=== PATIENT | female | born 1960 | race Caucasian/White ===

== ENCOUNTER 2021-05-19 22:43 | Emergency (ER) | payer OTHER ==
[~2021-05-19] VITALS: Ht 155 cm; Wt 63.5 kg
--- NOTE | 2021-05-19 23:01 | ED General ---
General Stated Complaint: COVID+,TROUBLE BREATHING Source of Information: Patient History of Present Illness Date Seen by Provider: May 19, 2021 Time Seen by Provider: 22:45 Initial Comments Patient is a 61-year-old female diagnosed with Covid 5 days ago who presents with shortness of breath and supine. Symptoms began this evening upon returning to bed improved upon coming to the emergency department.. Patient reports mild headache, dizziness, fatigue but denies body aches chest pain fever. She states overall she has improved since time of diagnosis with exception of this evening. She denies leg pain or swelling. No other acute symptoms or complaints. No medications or therapies taken prior to ED arrival. Of note, patient's blood pressure is 190s over 100s. She states she has never been treated or diagnosed with congestive heart failure and denies history of CAD, CHF or valvular heart disease.. Timing/Duration: 1-3 Hours Severity: Mild Modifying Factors: improves with Other Allergies and Home Medications Allergies Coded Allergies: Sulfa (Sulfonamide Antibiotics) (Verified Allergy, Intermediate, 05/19/21) rash Patient Home Medication List Home Medication List Reviewed: Yes Review of Systems Review of Systems Constitutional: see HPI EENTM: see HPI Respiratory: see HPI Cardiovascular: see HPI Gastrointestinal: see HPI Genitourinary: see HPI Musculoskeletal: see HPI Skin: see HPI Psychiatric/Neurological: See HPI Hematologic/Lymphatic: See HPI Immunological/Allergic: see HPI All Other Systems Reviewed Negative Unless Noted: Yes Physical Exam Vital Signs Vital Signs - First Documented 05/19/21 22:54 Temp 36.9 Pulse 64 Resp 20 B/P (MAP) 196/84 (121) Pulse Ox 99 O2 Delivery Room Air Capillary Refill : Height, Weight, BMI Height: '" Weight: lbs. oz. kg; BMI Method: General Appearance: WD/WN, Anxious Eyes: Bilateral Eye Normal Inspection, Bilateral Eye PERRL, Bilateral Eye EOMI HEENT: PERRL/EOMI, Pharynx Normal, Moist Mucous Membranes Neck: Full Range of Motion, Non Tender, Supple Respiratory: Lungs Clear, Decreased Breath Sounds, Other (Bibasilar pulmonary infiltrates) Cardiovascular: Regular Rate, Rhythm, No Edema Gastrointestinal: Non Tender, Soft Back: Normal Inspection, No CVA Tenderness Neurologic/Psychiatric: Alert, Oriented x3 Skin: Normal Color Focused Exam Sepsis Stage: Ruled Out Progress/Results/Core Measures Suspected Sepsis SIRS Temperature: Pulse: Respiratory Rate: Laboratory Tests 05/19/21 23:23: White Blood Count 4.4 Blood Pressure / Mean: Laboratory Tests 05/19/21 23:23: Creatinine 0.61, Platelet Count 259, Total Bilirubin 0.4 Results/Orders Lab Results Laboratory Tests Test 05/19/21 23:23 Range/Units White Blood Count 4.4 4.3-11.0 10^3/uL Red Blood Count 4.28 L 4.35-5.85 10^6/uL Hemoglobin 12.8 11.5-16.0 G/DL Hematocrit 39 35-52 % Mean Corpuscular Volume 91 80-99 FL Mean Corpuscular Hemoglobin 30 25-34 PG Mean Corpuscular Hemoglobin Concent 33 32-36 G/DL Red Cell Distribution Width 12.3 10.0-14.5 % Platelet Count 259 130-400 10^3/uL Mean Platelet Volume 10.6 H 7.4-10.4 FL Immature Granulocyte % (Auto) 1 % Neutrophils (%) (Auto) 55 42-75 % Lymphocytes (%) (Auto) 34 12-44 % Monocytes (%) (Auto) 10 0-12 % Eosinophils (%) (Auto) 0 0-10 % Basophils (%) (Auto) 0 0-10 % Neutrophils # (Auto) 2.5 1.8-7.8 X 10^3 Lymphocytes # (Auto) 1.5 1.0-4.0 X 10^3 Monocytes # (Auto) 0.4 0.0-1.0 X 10^3 Eosinophils # (Auto) 0.0 0.0-0.3 10^3/uL Basophils # (Auto) 0.0 0.0-0.1 10^3/uL Immature Granulocyte # (Auto) 0.0 0.0-0.1 10^3/uL D-Dimer 0.31 0.00-0.49 UG/ML Sodium Level 135 135-145 MMOL/L Potassium Level 4.0 3.6-5.0 MMOL/L Chloride Level 99 98-107 MMOL/L Carbon Dioxide Level 27 21-32 MMOL/L Anion Gap 9 5-14 MMOL/L Blood Urea Nitrogen 10 7-18 MG/DL Creatinine 0.61 0.60-1.30 MG/DL Estimat Glomerular Filtration Rate 99 BUN/Creatinine Ratio 16 Glucose Level 107 H 70-105 MG/DL Calcium Level 9.8 8.5-10.1 MG/DL Corrected Calcium 10.0 8.5-10.1 MG/DL Total Bilirubin 0.4 0.1-1.0 MG/DL Aspartate Amino Transf (AST/SGOT) 25 5-34 U/L Alanine Aminotransferase (ALT/SGPT) 24 0-55 U/L Alkaline Phosphatase 63 40-136 U/L Troponin I < 0.30 <0.30 NG/ML Pro-B-Type Natriuretic Peptide 110.6 H <75.0 PG/ML Total Protein 7.1 6.4-8.2 GM/DL Albumin 3.8 3.2-4.5 GM/DL My Orders Orders - GATO JONES DO Cbc With Automated Diff (05/19/21 23:01) Comprehensive Metabolic Panel (05/19/21 23:01) Troponin I Fs (05/19/21 23:07) Probnp Fs (05/19/21 23:07) Chest 1 View Ap/Pa Only (05/19/21 23:07) Ekg-Prn For Chest Pain Or Rhyt (05/19/21 23:07) Fibrin Degradation Products (05/19/21 23:08) Clonidine Tablet (Catapres Tablet) (05/19/21 23:15) Medications Given in ED Current Medications Medications Dose Ordered Sig/Gloria Route Start Time Stop Time Status Last Admin Dose Admin Clonidine HCl 0.2 mg ONCE ONCE PO 05/19/21 23:15 05/19/21 23:16 DC 05/19/21 23:28 0.2 MG Vital Signs/I&O 05/19/21 22:54 Temp 36.9 Pulse 64 Resp 20 B/P (MAP) 196/84 (121) Pulse Ox 99 O2 Delivery Room Air Capillary Refill : Departure Communication (Admissions) EKG: Normal sinus rhythm, rate 60, left anterior septal infarct. Nonspecific ST-T wave changes. Chest x-ray: Early bibasilar infiltrates per radiology report Blood pressure improved with treatment. Vital signs otherwise stable. No respiratory distress or respiratory compromise. Early pneumonia on chest x-ray. Will place on steroids antibiotics will prescribe albuterol inhaler, watchful waiting and PCP follow-up. Return precautions reviewed. Patient verbalizes understanding agreement discharge instructions prior to departure. Impression Primary Impression: Dyspnea Additional Impressions: Pneumonia due to COVID-19 virus Accelerated hypertension Disposition: HOME, SELF-CARE Condition: Stable Departure-Patient Inst. Referrals: JORGE A ANGEL MD (PCP/Family) Primary Care Physician GATO JONES DO May 19, 2021 23:01
[2021-05-19] MEDS ORDERED: cloNIDine 0.2 MG (CATAPRES) TAB PO ONE (23:15)
--- NOTE | 2021-05-19 23:29 | Diagnostic Imaging Report ---
INDICATION: Shortness of breath. Frontal chest obtained at 1103 p.m. There is no prior study for comparison. Heart and mediastinal silhouette are normal in appearance. There are patchy bibasilar infiltrates suspicious for early pneumonia. There is no pneumothorax or pleural fluid. Bony structures are unremarkable. IMPRESSION: Patchy bibasilar infiltrates are present suspicious for early pneumonia. Dictated by: Dictated on workstation # [id number]
[2021-05-19 23:31] LABS: BASOPHILS % (AUTO) 0 % (0-10); EOSINOPHILS % (AUTO) 0 % (0-10); HEMATOCRIT 39 % (35-52); HEMOGLOBIN 12.8 G/DL (11.5-16.0); MEAN CORPUSCULAR HEMOGLOBIN 30 PG (25-34); MEAN CORPUSCULAR HGB CONC 33 G/DL (32-36); MEAN CORPUSCULAR VOLUME 91 FL (80-99); MEAN PLATELET VOLUME 10.6 FL (7.4-10.4); MONOCYTES % (AUTO) 10 % (0-12); NEUTROPHILS % (AUTO) 55 % (42-75); PLATELET COUNT 259 10^3/uL (130-400); WHITE BLOOD COUNT 4.4 10^3/uL (4.3-11.0)
[2021-05-19 23:32] LABS: LYMPHOCYTES # (AUTO) 1.5 X 10^3 (1.0-4.0); LYMPHOCYTES % (AUTO) 34 % (12-44); MONOCYTES # (AUTO) 0.4 X 10^3 (0.0-1.0); NEUTROPHILS # (AUTO) 2.5 X 10^3 (1.8-7.8)
[2021-05-20 00:01] LABS: ALKALINE PHOSPHATASE 63 U/L (40-136); BILIRUBIN,TOTAL 0.4 MG/DL (0.1-1.0); BUN/CREATININE RATIO 16; CALCIUM 9.8 MG/DL (8.5-10.1); CARBON DIOXIDE 27 MMOL/L (21-32); CHLORIDE 99 MMOL/L (98-107); CREATININE SERUM 0.61 MG/DL (0.60-1.30); GFR ESTIMATED 99; GLUCOSE 107 MG/DL (70-105); SODIUM 135 MMOL/L (135-145)
[2021-05-20 00:02] LABS: ALANINE AMINOTRANSFERASE 24 U/L (0-55); ALBUMIN 3.8 GM/DL (3.2-4.5); TOTAL PROTEIN 7.1 GM/DL (6.4-8.2)
[2021-05-20] MEDS ORDERED: DOXY100T2 PO (00:17)
[2021-05-20] MEDS ORDERED: PRD20T PO (00:17)
[2021-05-20] MEDS ORDERED: ALBU6.7H8 INH (00:17)
[2021-05-20 00:30] VITALS: BP 196/84
== END 2021-05-20 00:30 | disposition home or self-care (01) ==
LOC: ER FS 22:46
DX: U07.1 COVID-19 (principal); J12.82 Pneumonia due to coronavirus disease 2019; R06.00 Dyspnea, unspecified; I10 Essential (primary) hypertension
CPT/HCPCS: 36415; 71045; 80053; 83880; 84484; 85025; 85379; 93005